=== PATIENT | male | born 1995 | race Caucasian/White ===

== ENCOUNTER 2024-03-28 10:06 | Outpatient (CLI) | payer BC, SELFPAY ==
--- NOTE | 2024-03-28 10:15 | MR_ITS ---
[address] [address] Phone:?[phone] Fax:?[phone] Referring Physician Information: Andre Ann M.D. [id number] [facility] [address] Phone:?[phone] Fax:?[phone] Patient:Remy Cooper D.O.B:?1995 Sex:?Male Phone:?[phone] [facility] MRN:?[id number] Exam Date:?03/28/2024 EXAM: MRI EXAMINATION OF THE RIGHT KNEE CLINICAL INFORMATION: Right knee pain. History of injury. Concern for lateral meniscus tear. TECHNICAL INFORMATION: Coronal PD and STIR. Axial PD and T2 fat saturation. Sagittal PD and PD fat saturation images acquired. No prior studies for comparison. INTERPRETATION: Bones: No appreciable subchondral edema signal or cystic change. No evidence for an occult fracture, osseous contusion or stress reaction. No other abnormal bone marrow edema pattern is identified. Ligaments and tendons: The medial collateral ligament is intact, without acute sprain or tear. The iliotibial band, fibular collateral ligament, biceps femoris tendon and popliteus tendon all are intact. The anterior cruciate ligament is intact without acute sprain or tear. The posterior cruciate ligament is intact. Extensor Mechanism: The patellar and quadriceps tendons are intact. The medial and lateral retinacula are intact. Knee Joint: There is no knee joint effusion. No discrete popliteal cyst. No abnormal soft tissue fluid/edema signal to indicate MRI appearance for bursitis about the knee. There is no discrete loose body seen within the joint. Medial Compartment: There is no evidence for discrete medial meniscal tear. No displaced flap fragment or parameniscal cyst. There is no focal chondral defect. No other significant changes of chondromalacia. Lateral Compartment: Undersurface fraying/shallow tearing identified through the body of the lateral meniscus. There is additional peripheral vertical tearing through the body of the meniscus. There is additional vertical tearing involving the mid and peripheral one third portion throughout the posterior horn of the meniscus. No displaced flap fragment or parameniscal cyst. There is no focal chondral defect. No other significant changes of chondromalacia. Patellofemoral articulation: There is no focal chondral defect. No other significant chondromalacia. CONCLUSION: 1. Undersurface fraying/shallow tearing involves the body of the lateral meniscus. Additional peripheral vertical tear involves the body. Vertical tearing involves the mid and peripheral one third portion throughout the posterior horn. 2. No evidence for a medial meniscal tear. 3. The cruciate ligaments are intact. No other residua of a ligament injury involving the knee. 4. The articular cartilage of the knee is preserved. KES Electronically signed on 03/31/2024 11:51:00 AM by Claude Talbot M.D.
== END 2024-03-28 10:07 | disposition home or self-care (01) ==
LOC: MRI 10:11
PROVIDERS: Visit Provider Orthopaedic Surgery Sports Medicine
DX: M25.561 Pain in right knee (principal); S83.261A Peripheral tear of lateral meniscus, current injury, right knee, initial encounter
CPT/HCPCS: 73721

== ENCOUNTER 2024-05-21 06:25 | Day surgery (SDC) | payer OTHER, SELFPAY ==
[2024-05-21] VITALS (12 sets, daily range): BP systolic 113–134; BP diastolic 61–90; PULSE 56–81; RESP 12–20; TEMP 36–36.6; O2SAT 94–99; BMI 28.1
--- OUTSIDE RECORDS SUMMARY | 2024-05-21 06:29 | XMS_ITS | Clinical Summary ---
Author Organization [employer] [facility] Address [place], [place] [address] Care Team Providers Care Recreation Officer Name Role Phone Margarita Wren MD Primary Care Provider Allergies No known active allergies Medications No known medications Active Problems Problem Noted Date Diagnosed Date Nephrolithiasis 06/26/2018 Encounters Date Type Department Care Team Description 05/14/2024 2:15 PM INJECTION MOLDING MACHINE OPERATOR Office Visit [facility] [address] [facility] [place] [id number] Spencer Rockwell PA Preoperative Exam (05/21/24) 05/14/2024 Travel from Last 3 Months Immunizations Name Administration Dates Next Due DTP-HIB [birth year] DTaP 12/25/2001,02/24/2000,1996 HIB-HepB (Comvax) 1995 Hepatitis A (Peds) 06/13/2010,12/31/2007 Hepatitis B (Peds) [birth year] Inactivated Polio Vaccine 12/25/2001 MENINGOCOCCAL VACCINE 2 VIAL 2MO-55YO (MENVEO) 01/21/2013 MMR 12/25/2001,02/24/2000 Meningococcal Vaccine (Menactra) 12/31/2007 Oral Polio Vaccine 1996,1996, 996 Tdap 07/07/2019,12/31/2007 Varicella Vaccine 12/31/2007 Family History Medical History Relation Name Comments Good Health Brother 2 Anthony Cancer Father lung cance r Good Health Mother Good Health Sister 2 Yomaira Relation Name Status Comments Brother 1 Alive Brother 2 Anthony Father Alive Maternal Grandfather Maternal Grandmother Mother Alive Paternal Grandfather Paternal Grandmother Sister 1 Alive Sister 2 Yomaira Social History Tobacco Use Types Packs/Day Years Used Date Smoking Tobacco: Never Smokeless Tobacco: Never Tobacco Cessation:Counseling Given: Yes Comments:mother smokes outside Alcohol Use Standard Drinks/Week Comments Yes 4 (1 standard drink = 0.6 oz pur e alcohol) Sex and Gender Information Value Date Recorded Sex Assigned at Not on file Legal Sex Male 5:27 AM INJECTION MOLDING MACHINE OPERATOR Gender Identity Not on file Sexual Orientation Not on file Occupation Industry Job Start Date Job End Date student Not on file Not on file Not on file Obstetrics History Last Filed Vital Signs Vital Sign Reading Time Taken Comments Blood Pressure 124/72 05/14/2024 2:16 PM INJECTION MOLDING MACHINE OPERATOR Pulse 74 05/14/2024 2:16 PM INJECTION MOLDING MACHINE OPERATOR Temperature 36.9 C (98.5 F) 05/14/2024 2:16 PM INJECTION MOLDING MACHINE OPERATOR Respiratory Rate 18 07/07/2019 9:14 AM INJECTION MOLDING MACHINE OPERATOR Oxygen Saturation 99% 05/14/2024 2:16 PM INJECTION MOLDING MACHINE OPERATOR Inhaled Oxygen Concentration - - Weight 89.4 kg (197 lb 3.2 oz) 05/14/2024 2:16 P M INJECTION MOLDING MACHINE OPERATOR Height 177.8 cm (5' 10) 05/14/2024 2:16 PM INJECTION MOLDING MACHINE OPERATOR Body Mass Index 28.3 05/14/2024 2:16 PM INJECTION MOLDING MACHINE OPERATOR Plan of Treatment Health Maintenance Due Date Last Done Comments Depression screening for age 12+ 2008 HIV for age 15-65 01/01/2011 Hepatitis C screening for ag e 18-79 01/01/2014 COVID-19 vaccine series ( season) 2024 Influenza for age 9-49 01/06/2024 BMI (ht and wt on same day) for age 18+ 05/14/2025 05/14/2024, 04/12/2018, 10/10/2016 Tetanus booster 07/06/2029 07/07/2019, 12/31/2007 Tdap Completed 07/07/2019, 12/31/2007 Pneumococcal series for age 6-49 Aged Out No longer eligible b ased on patient's age to complete this topic Insurance [facility] Care Teams Recreation Officer Relationship Specialty Start Date End Date Margarita Wren MD [address] [place] [address] [place] [id number] PCP - General Family Practice 06/10/18
[2024-05-21] MEDS: SODIUM CHLORIDE 0.9 % (FLUSH) 10 ML SYRINGE IVF (07:00)
--- NOTE | 2024-05-21 07:19 | W.PM.H&PU ---
History & Physical Update History & Physical Update H&P Reviewed and patient assessed: No changes noted
[2024-05-21] MEDS: 0.9 % SODIUM CHLORIDE 500 ML 500 ML IV (07:20)
[2024-05-21] MEDS: CEFAZOLIN 2 GM in 0.9 % SODIUM CHLORIDE Mini-bag 100 ML IVPB (07:39)
--- NOTE | 2024-05-21 08:58 | P.ORPRC_ITS ---
Procedure Note Date of procedure: 05/21/24 Procedure: PREOPERATIVE DIAGNOSIS: 1. Right knee lateral meniscus tear, recurrent, posterior horn (previous repair via inside-out technique performed in 2013) POSTOPERATIVE DIAGNOSIS: 1. Right knee lateral meniscus tear, recurrent, posterior horn (previous repair via inside-out technique performed in 2013) PROCEDURE: 1. Right knee arthroscopic lateral meniscus all inside repair 2. Right knee arthroscopic microfracture intercondylar notch SURGEON: Andre Ann M.D. BOARD SAW RUNNER: Mike NICHOLAS. Of note, a skilled legal executive assistant was critical for this case to aid in patient positioning, knee manipulation, skill to manipulate arthr oscopic instruments and camera, instrument exchange and suture passage/retrieval, and closure. ANESTHESIA: Spinal plus postop regional block EBL: 2 mL TOURNIQUET: 40 minutes at 300 torr COMPLICATIONS: None evident IMPLANTS: Ceterix all-inside suture device (x1); also 4-0 FiberWire via meniscal scorpion (x2) INDICATIONS: The patient is a pleasant 29-year-old male who has experienced right knee pain following an injury to the right knee. History is notable for undergoing a right knee lateral meniscus inside-out repair in 2013. He did fantastic for number of years. Thereafter, he had a recent injury and recurrent episode of pain about the lateral side of this right knee. Exam along with imaging confirmed a recurrent lateral meniscus tear.] Given the patient's youthful age, desired remain physically active with sporting activities, and the displaced tissue, surgery is recommended to stabilize the meniscus. 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 Intact medial meniscus. ACL and PCL were intact robust. The lateral meniscus showed tearing from the popliteal hiatus extending through the posterior horn approaching the posterior root. The posterior root was clearly intact. The medial meniscus was otherwise intact and normal appearing. DESCRIPTION OF PROCEDURE: After a thorough discussion of risks, benefits, and alternatives, the patient was brought to the operating room and placed upon the operating table. Induction of anesthesia was undertaken as previously noted. 2 g IV Ancef was administered within 1 hr of incision preoperatively. Appropriate time-out was performed identifying proper patient, site, and procedure. The right lower extremity was prepped and draped in the appropriate sterile fashion using ChloraPrep. The limb was exsanguinated and tourniquet inflated. Anterolateral and anteromedial portals were established with an 11 blade, and a diagnostic arthroscopy was performed. This identified the findings as noted above. Following the diagnostic arthroscopy, the meniscus tear was freshened with a torpedo shaver and arthroscopic rasp. A passport was placed in the lateral portal. All inside repair was performed with combination of meniscal scorpion (x2 passages) and a Ceterix device (x1). The suture tails were all tied, cut, and reprobed on the meniscus tear. This found to have excellent security to the tear. The lateral meniscus still had appropriate excursion particular near the popliteal hiatus consistent with what would be expected. Following this, the arthroscopic Arthrex power pick device was utilized for microfracture in the intercondylar notch to aid with bleeding and the am of helping with meniscus tear healing. Instruments were removed, excess fluid was drained, and closure performed with 4-0 Monocryl for portal closure. with Steri-Strips. Dressings were applied, the tourniquet deflated, and the patient was awoken from anesthesia and transferred to the PACU in stable condition. A skilled legal executive assistant was critical for this case to aid in patient positioning, knee manipulation, skill to manipulate arthroscopic instruments and camera, instrument exchange, and closure. PLAN: 1. Partial (up to 25%) weightbear operative lower extremity. Crutch / walker ambulation assistance PRN. 2. Ice, acetominophen and/or ibuprofen, and oxycodone for pain as needed. 3. Knee range of motion and quad sets/straight leg raise regularly 4. Follow up with PA visit in 1-2 weeks for a wound check. Initiate PT for A/P ROM and e-stim/open chain quad exercises.
--- NOTE | 2024-05-21 09:15 | P.ANES_ITS ---
Anesthesia Charges Start Date/Time Anesthesia Start Date: 05/21/24 Anesthesia Start Time: 07:24 Stop Date/Time Anesthesia Stop Date: 05/21/24 Anesthesia Stop Time: 09:10 Coding CPT Codes CPT Codes: ANESTH KNEE JOINT SURGERY - 03879 ([id number]) P1 - NORMAL HEALTHY PATIENT, QK - SNAP ATTACHER 2-4 CNCRNT ANES PROC, QX - ENGRAVER LETTER SVJluis W/ MED DIRECTION
--- NOTE | 2024-05-21 09:15 | P.ANES_ITS ---
Anesthesia Charges Start Date/Time Anesthesia Start Date: 05/21/24 Anesthesia Start Time: 07:24 Stop Date/Time Anesthesia Stop Date: 05/21/24 Anesthesia Stop Time: 09:10 Coding CPT Codes CPT Codes: ANESTH KNEE JOINT SURGERY - 32102 ([id number]) P1 - NORMAL HEALTHY PATIENT, QK - RESIDENT PROGRAM SPECIALIST 2-4 CNCRNT ANES PROC, QX - IP PARALEGAL SVJluis W/ MED DIRECTION
--- NOTE | 2024-05-21 09:15 | W.ANESCHARGE ---
Anesthesia Charges Start Date/Time Anesthesia Start Date: 05/21/24 Anesthesia Start Time: 07:24 Stop Date/Time Anesthesia Stop Date: 05/21/24 Anesthesia Stop Time: 09:10 Coding CPT Codes CPT Codes: ANESTH KNEE JOINT SURGERY - 85565 ([id number]) P1 - NORMAL HEALTHY PATIENT, QK - RELOCATION DIRECTOR 2-4 CNCRNT ANES PROC, QX - BILLET HEADER SVJluis W/ MED DIRECTION
--- NOTE | 2024-05-21 09:15 | W.ANESCHARGE ---
Anesthesia Charges Start Date/Time Anesthesia Start Date: 05/21/24 Anesthesia Start Time: 07:24 Stop Date/Time Anesthesia Stop Date: 05/21/24 Anesthesia Stop Time: 09:10 Coding CPT Codes CPT Codes: ANESTH KNEE JOINT SURGERY - 20518 ([id number]) P1 - NORMAL HEALTHY PATIENT, QK - CUSTOM MOTORCYCLE PAINTER 2-4 CNCRNT ANES PROC, QX - TILE MOLDER SVJluis W/ MED DIRECTION
--- NOTE | 2024-05-21 09:15 | W.PM.NB ---
Nerve Block Nerve Block Time Seen by Provider: 08:56 Date Seen: 05/21/24 Type of block requested by surgeon for post-operative analgesia: geniculars Side: right Time out performed: Yes Verification of patient name: Yes Verification of date of : Yes Site marking: site marked Name of person performing procedure: Rafita Continuous monitoring Was continuous monitoring of O2 sat, B/P, monitor tech, recorded every 15 minutes?: Yes Procedure Checklist: sterile prep, needles and gloves Ultrasound guided. Images saved: Yes Medications given in 5ml increments after negative aspiration: Marcaine %: 0.25 mL: 12 Needle gauge: 25 Precedex (mcg): 25 Patient tolerated procedure well: Yes Block Charges Block Charge (with Pro Fee): Genicular Nerve Block
--- NOTE | 2024-05-21 10:58 | REH.PT ---
Patient with R Lateral meniscus repair PWB per Dr. Ann. Crutches issued and fit to patient. Instructions given. Pt demo's competency with transfers and amb on level and stairs and maintains PWB precautions. Patient has used crutches with previous injury. No charge, less than 7 min total spent in care.
== END 2024-05-21 11:03 | disposition home or self-care (01) ==
PROVIDERS: Visit Provider Orthopaedic Surgery Sports Medicine
PROC: (CPT 29870; principal; 2024-05-21 07:45)
DX: S83.281A Other tear of lateral meniscus, current injury, right knee, initial encounter (principal); G89.18 Other acute postprocedural pain
CPT/HCPCS: 29882; 29879; 01400; 64454; J0665; J0690; J1100; J2250; J2405; J2704; J3010; J3490; J7030

== ENCOUNTER 2024-08-01 08:30 | Outpatient (RCR) | payer OTHER, SELFPAY | END 2024-08-04 15:58 | disposition home or self-care (01) | PROVIDERS: Visit Provider Physician Assistant Surgical | DX: Z98.890 Other specified postprocedural states (principal); M25.561 Pain in right knee; M25.661 Stiffness of right knee, not elsewhere classified; Z51.89 Encounter for other specified aftercare | CPT/HCPCS: 97110; 97161 ==